=== PATIENT | female | born 1985 | race Caucasian/White ===

== ENCOUNTER 2021-07-20 21:51 | Inpatient (IN) | payer OTHER ==
[~2021-07-20] VITALS: Ht 160 cm; Wt 74.8 kg
[~2021-07-20 21:51] MED LIST: ZYVOX600 MG PO
[2021-07-20] MEDS ORDERED: BUPRENORPHIN-N1 EACH SL (23:47)
[2021-07-21 00:21] LABS: HEMOGLOBIN 12.3 gm/dl (12.3-15.3); RED BLOOD COUNT 4.14 M/UL (4.00-5.10); WHITE BLOOD COUNT 10.1 K/UL (4.5-11.0)
[2021-07-21] MEDS ORDERED: DOCUSATE SODIU100 MG PO (13:55)
[2021-07-21] MEDS ORDERED: IBUPROFEN600 MG PO (13:55)
[2021-07-22 07:19] LABS: HEMOGLOBIN 8.3 gm/dl (12.3-15.3)
[2021-07-22] MEDS ORDERED: FERROUS FUMARA324 MG PO (11:23)
== END 2021-07-22 20:10 | disposition home or self-care (01) | DRG 807 ==
LOC: GENOP 21:51 → OB 23:42
PROVIDERS: ADMIT Obstetrics & Gynecology
PROC: 10E0XZZ Delivery of Products of Conception, External Approach (ICD-10-PCS; principal; 2021-07-20)
PROC: 4A1HXCZ Monitoring of Products of Conception, Cardiac Rate, External Approach (ICD-10-PCS; 2021-07-20)
DX: O45.93 Premature separation of placenta, unspecified, third trimester (principal); Z37.0 Single live birth; Z3A.37 37 weeks gestation of pregnancy; Z20.822 Contact with and (suspected) exposure to COVID-19
CPT/HCPCS: 51702; 80307; 82800; 85014; 85018; 85025; 86900; 86901; J2590; J7120